=== PATIENT | female | born 1980 | race Caucasian/White ===

== ENCOUNTER → 2018-03-25 16:56 | Outpatient (CLI) | payer OTHER, SELFPAY ==
[2018-03-25 19:58] LABS: Free T4, Direct Thyroxine 0.99 ng/dL (0.78-2.19)
[2018-03-25 20:12] LABS: Thyroid Stimulating Hormone 1.98 uIU/mL (0.47-4.68)
== END ==
PROVIDERS: Visit Provider Obstetrics & Gynecology
DX: Z31.9 Encounter for procreative management, unspecified (principal)
CPT/HCPCS: 36415; 84439; 84443

== ENCOUNTER → 2018-07-03 16:47 | Outpatient (CLI) | payer OTHER, SELFPAY ==
[2018-07-03 19:31] LABS: HCG Quantitative /Beta subunit 84.64 mIU/mL
== END ==
PROVIDERS: PCP Internal Medicine; Visit Provider Obstetrics & Gynecology
DX: Z32.01 Encounter for pregnancy test, result positive (principal)
CPT/HCPCS: 36415; 84702

== ENCOUNTER → 2018-07-05 11:10 | Outpatient (CLI) | payer OTHER, SELFPAY ==
[2018-07-05 12:33] LABS: HCG Quantitative /Beta subunit 215.25 mIU/mL
== END ==
PROVIDERS: PCP Internal Medicine; Visit Provider Obstetrics & Gynecology
DX: O36.80X0 Pregnancy with inconclusive fetal viability, not applicable or unspecified (principal)
CPT/HCPCS: 36415; 84702

== ENCOUNTER → 2018-09-02 10:47 | Outpatient (CLI) | payer OTHER, SELFPAY ==
[2018-09-02 11:40] LABS: Add Manual Diff / Slide Review NO; Basophils Absolute Auto 0 /uL (0-100); Basophils Percent Auto 0.4 % (0-2); Eosinophils Absolute Auto 0 /uL (0-450); Eosinophils Percent Auto 0.1 % (2-4); Hematocrit 41.5 % (36-46); Hemoglobin 14.5 g/dL (12.0-16.0); Lymphocytes Absolute Auto 2100 /uL (1100-4500); Lymphocytes Percent Auto 26.4 % (25-40); Mean Corpuscular HGB Conc 34.9 % (30-36); Mean Corpuscular Volume 94.4 fL (80-100); Monocytes Absolute Auto 400 /uL (0-900); Monocytes Percent Auto 5.3 % (3-14); Neutrophils Absolute Auto 5400 /uL (1500-7000); Neutrophils Percent Auto 67.8 % (50-75); Platelet Count 190 X10^3/uL (150-400); Red Cell Distribution Width 12.4 % (11.6-14.8); White Blood Cell Count 7.9 X10^3/uL (4.5-11.0)
[2018-09-02 12:36] LABS: Appearance Urine UA CLEAR; Bilirubin Urine UA NEGATIVE (NEGATIVE); Color Urine UA YELLOW; Glucose Urine UA NEGATIVE (Negative); Ketones Urine UA NEGATIVE (NEGATIVE); Leukocyte Esterase Urine UA NEGATIVE (NEGATIVE); Nitrite Urine UA NEGATIVE (Negative); Occult Blood Urine UA NEGATIVE (Negative); Protein Urine UA NEGATIVE (Negative); Urobilinogen Urine UA 0.2 E.U./dL (0.2)
[2018-09-02 16:16] LABS: Hepatitis B Surface Antigen NEGATIVE s/c (NEGATIVE)
[2018-09-02 16:27] LABS: HIV 1 and 2 Antibody NEGATIVE (NEGATIVE); Hep C Virus Ab w/Reflex Quant NEGATIVE s/c (NEGATIVE)
[2018-09-04 21:01] LABS: RPR Screen Nonreactive (Nonreactive)
[2018-09-10 08:17] LABS: Informaseq SEE SEPARATE REPORTS
== END ==
PROVIDERS: PCP Internal Medicine; Visit Provider Obstetrics & Gynecology
DX: Z34.81 Encounter for supervision of other normal pregnancy, first trimester (principal); O09.529 Supervision of elderly multigravida, unspecified trimester; Z3A.12 12 weeks gestation of pregnancy
CPT/HCPCS: 36415; 80055; 81003; 81507; 86703; 86787; 86803; 86850; 86900; 86901; 87086

== ENCOUNTER → 2018-10-14 12:11 | Outpatient (CLI) | payer OTHER, SELFPAY | PROVIDERS: PCP Internal Medicine; Visit Provider Obstetrics & Gynecology | DX: Z34.82 Encounter for supervision of other normal pregnancy, second trimester (principal); Z3A.18 18 weeks gestation of pregnancy | CPT/HCPCS: 36415; 82105 ==

== ENCOUNTER → 2018-11-10 07:41 | Outpatient (CLI) | payer OTHER, SELFPAY ==
--- NOTE | 2018-11-10 07:42 | DI.US.S_ITS ---
PROCEDURE: US OB >= 14 WEEKS FETUS INDICATIONS: ANATOMY OUTSIDE/PRIOR DATING DATA: Last menstrual period (LMP): 06/05/18. LMP-based estimated date of delivery (SARAH): 03/12/19. First dating scan (date and location): 07/18/18. Estimated date of delivery (SARAH) from first dating scan: 03/12/19. TECHNIQUE: Real-time scanning was performed of the fetus, with image documentation and biometric measurements. Endovaginal scanning: No COMPARISON: [facility], , OB >= 14 WEEKS FETUS, 09/17/2018, 10:33. FINDINGS: General: A single living intrauterine gestation is present. Presentation: Breech to variable. Placenta: Placental position is posterior, without previa. Amniotic fluid index: 20.0 cm, normal range is 5-24 cm. heart rate: 147 beats per minute. Maternal cervical canal: 4.9 cm long. Normal lower limit is 2.5 cm. biometrics: Biparietal diameter: 22 weeks 1 day Head circumference: 23 weeks 2 days Abdominal circumference: 22 weeks 4 days Femur length: 23 weeks 6 days Estimated gestational age from initial scan: 22 weeks 4 days Composite gestational age from present scan: 23 weeks Estimated weight and percentile: 563 g; 70 percentile Measurement variability for biometric dating: +/- 7 days from 14 weeks to 15 weeks 6 days gestation, +/- 10 days from 16 weeks to 21 weeks 6 days gestation, +/- 2 weeks from 22 weeks to 27 weeks 6 days gestation, +/- 3 weeks for 28 weeks gestation or later. weight reference: 4500 g or EFW >90/95% is considered macrosomia or large for gestational age. EFW <10% is small for gestational age. EFW 5% or less is considered intra-uterine growth restriction. Anatomic survey: Neuro: Ventricles are non-dilated at less than 10 mm. Cisterna magna is normal at 3-11 mm. Cerebellum is normal in size and morphology. Nuchal skin fold: Normal at less than 6 mm between 14-21 weeks gestational age. Face: Nose and lips, facial profile are normal. Spine: No evidence for spina bifida. Heart: 4-chambered heart is present, with normal ventricular outflow tracts. Diaphragm: Diaphragm is intact. Stomach: Left-sided stomach is present. Kidneys: No hydronephrosis. Normal is less than 5 mm in 2nd trimester, less than 7 mm in 3rd trimester. Cord: 3-vessel cord has orthotopic insertion. Bladder: Normal in size. Extremities: All 4 extremities identified. IMPRESSION: 1. Single living IUP redemonstrated and interval growth of normal. 2. Normal anatomic survey. Dictated by: Christopher FISHER Interpreted: Geri Mims MD on 11/10/2018 at 9:39 Approved by: Geri Mims M.D. on 11/10/2018 at 14:46
== END ==
PROVIDERS: PCP Internal Medicine; Visit Provider Obstetrics & Gynecology
DX: Z34.82 Encounter for supervision of other normal pregnancy, second trimester (principal); Z3A.23 23 weeks gestation of pregnancy
CPT/HCPCS: 76811

== ENCOUNTER → 2018-12-01 09:40 | Outpatient (CLI) | payer OTHER, SELFPAY ==
[2018-12-01 11:59] LABS: GTT (PREG) 1 Hour PP 50gm Dose 160 mg/dL (76-139)
== END ==
PROVIDERS: Family Provider Internal Medicine; PCP Internal Medicine; Visit Provider Obstetrics & Gynecology
DX: Z34.82 Encounter for supervision of other normal pregnancy, second trimester (principal); Z3A.24 24 weeks gestation of pregnancy
CPT/HCPCS: 82950

== ENCOUNTER → 2018-12-04 07:12 | Outpatient (CLI) | payer OTHER, SELFPAY ==
[2018-12-04 08:37] LABS: Hematocrit 40.5 % (36-46); Hemoglobin 13.9 g/dL (12.0-16.0)
[2018-12-09 17:11] LABS: Parvovirus B19 Antibody 0.1
== END ==
PROVIDERS: PCP Internal Medicine; Visit Provider Obstetrics & Gynecology
DX: Z20.828 Contact with and (suspected) exposure to other viral communicable diseases (principal); Z34.92 Encounter for supervision of normal pregnancy, unspecified, second trimester; Z33.1 Pregnant state, incidental; Z3A.25 25 weeks gestation of pregnancy
CPT/HCPCS: 36415; 85014; 85018; 86747

== ENCOUNTER → 2018-12-08 07:51 | Outpatient (CLI) | payer OTHER, SELFPAY ==
[2018-12-08 10:29] LABS: Glucose Fasting Gestational 79 mg/dL (76-95)
[2018-12-08 11:07] LABS: Glucose 1 Hour Gest 173 mg/dL (76-180)
[2018-12-08 11:07] LABS: Glucose 2 Hour Gest 191 mg/dL (76-155)
[2018-12-08 11:08] LABS: Glucose Tol Interp,Gestational INTERPRETATION
[2018-12-08 13:47] LABS: Glucose 3 Hour Gest 90 mg/dL (76-140)
== END ==
PROVIDERS: PCP Internal Medicine; Visit Provider Obstetrics & Gynecology
DX: Z34.92 Encounter for supervision of normal pregnancy, unspecified, second trimester (principal); O99.810 Abnormal glucose complicating pregnancy; Z3A.24 24 weeks gestation of pregnancy
CPT/HCPCS: 36415; 82951; 82952

== ENCOUNTER → 2018-12-24 15:11 | Outpatient (CLI) | payer OTHER, SELFPAY ==
[2018-12-28 16:47] LABS: Parvovirus B19 Antibody 0.2
== END ==
PROVIDERS: PCP Internal Medicine; Visit Provider Obstetrics & Gynecology
DX: Z34.92 Encounter for supervision of normal pregnancy, unspecified, second trimester (principal); Z20.828 Contact with and (suspected) exposure to other viral communicable diseases
CPT/HCPCS: 36415; 86747

== ENCOUNTER 2019-01-17 09:45 | Outpatient (CLI) | payer OTHER, SELFPAY ==
--- NOTE | 2019-01-17 10:51 | DI.US.S_ITS ---
PROCEDURE: US OB BIOPHYSICAL PROFILE INDICATIONS: DECREASED MOVEMENT OUTSIDE/PRIOR DATING DATA: Last menstrual period (LMP): 06/05/18. LMP-based estimated date of delivery (SARAH): 03/12/19. First dating scan (date and location): 07/18/18. Estimated date of delivery (SARAH) from first dating scan: 03/12/19. TECHNIQUE: Real-time scanning was performed of the fetus for biophysical profile, with image documentation. COMPARISON: [facility], , US OB >= 14 WEEKS FETUS, 01/13/2019, 14:24. [facility], , US OB >= 14 WEEKS FETUS, 11/10/2018, 8:04. [facility], , US OB >= 14 WEEKS FETUS, 09/17/2018, 10:33. [facility], , US OB <= 14 WEEKS FETUS, 08/19/2018, 9:51. [facility], , US OB <= 14 WEEKS FETUS, 07/18/2018, 14:29. FINDINGS: General: A single live intrauterine gestation is present. Presentation: Vertex. Placenta: Placental position is left fundal, without previa. Amniotic fluid index: 14.9 cm, normal range is 5-24 cm. heart rate: 141 beats per minute. Maternal cervical canal: 4.5 cm long. Normal lower limit is 2.5 cm. Estimated gestational age from initial scan: 32 weeks 2 days. Biophysical profile: Tone: 2 points. Movement: 2 points. Respiration: 2 points. Largest pocket of fluid: 2 points. (Largest pocket 5.9 cm) IMPRESSION: Normal biophysical profile, 8/8 points. Dictated by: Cam Phillips M.D. on 01/17/2019 at 10:59 Approved by: Cam Phillips M.D. on 01/17/2019 at 11:01
--- NOTE | 2019-01-17 11:00 | P.TNLD_ITS ---
Visit Information Visit Information Date of evaluation: 01/17/19 Primary OB Provider: Verena Roa On-call OB Provider: Leana Ordaz Reason for Evaluation: Yes non-stress test non-stress test reason: decreased movement Comments/Additional reasons for admission: This patient is 38-year-old 0-1 at 32 and 2 presenting for decreased movement since last night. The patient reports that she noticed yesterday that she had decreased movement over the course of the day, drinks mg symptoms improved, but noticed it was decreased again this morning and presented for care. Patient denies contractions, vaginal bleeding, loss of fluid, or any other complaints obstetrical or otherwise. complicated by history of section, letrozole , elevated 1 hour GTT. Patient is for repeat section. Patient reports 2 other pregnancies were induced abortions. [facility] Medical History Actinic keratosis (Chronic ~2010) Asthma (Chronic) Chicken pox (Resolved) Foot pain (Chronic) Headache (Chronic) Human papilloma virus (Chronic ~2006) Hypertension (Chronic) Sleep apnea (Chronic ~07/2018) Snoring (Chronic) Vertigo (Chronic) Surgical History H/O section (Resolved ~09/28/14) Family History Father Hypertension Hyperlipidemia Grandfather Cancer Grandmother Heart disease Stroke Grandfather Heart disease Stroke Grandmother Cancer Social History Smoking Status: Never smoker Review of Systems Constitutional Constitutional: Reports system reviewed and no additional complaints, except as documented Cardiovascular Cardiovascular: Reports system reviewed; no additional complaints, except as documented Respiratory Respiratory: Reports system reviewed and no additional complaints, except as d ocumented Gastrointestinal Gastrointestinal: Reports system reviewed and no additional complaints, except as documented Genitourinary Genitourinary: Reports system reviewed and no additional complaints, except as documented Neurologic Neurologic: Reports system reviewed and no additional complaints, except as documented Exam Vital Signs (past 8 hours): 215/59 with appropriate cuff size. HR 80, T 36.3C GI Palpation: soft and No tender Evaluation Evaluation Baseline heart rate: 135 Variability: Average (6-10) monitor accelerations: Present monitor decelerations: Absent Category of Tracing: I Comments: BPP 10/10, with BEBETO normal per US tech. Patient feeling movement after ultrasound. Diagnosis, Plan/Disposition Plan/Disposition Plan: Patient reassured, discharged home with precautions. Discussed intermittent systolic BPs of 130s, patient asymptomatic, for follow up in clinic. OB Disposition: home
== END 2019-01-17 11:30 | disposition home or self-care (01) ==
LOC: LABOR 11:46 → OB 01-20 08:58
PROVIDERS: PCP Internal Medicine; Visit Provider Obstetrics & Gynecology
DX: O36.8130 Decreased fetal movements, third trimester, not applicable or unspecified (principal); O09.523 Supervision of elderly multigravida, third trimester; O26.23 Pregnancy care for patient with recurrent pregnancy loss, third trimester; Z3A.32 32 weeks gestation of pregnancy
CPT/HCPCS: 59025; 59050; 76819; G0378; G0379

== ENCOUNTER → 2019-02-09 16:21 | Outpatient (CLI) | payer OTHER, SELFPAY ==
[2019-02-10 12:23] LABS: Strep Grp B PCR NEG for Grp B Strep
== END ==
PROVIDERS: PCP Internal Medicine; Visit Provider Obstetrics & Gynecology
DX: Z34.83 Encounter for supervision of other normal pregnancy, third trimester (principal); Z3A.35 35 weeks gestation of pregnancy
CPT/HCPCS: 87653

== ENCOUNTER 2019-03-01 13:28 | Outpatient (CLI) | payer OTHER, SELFPAY ==
--- NOTE | 2019-03-01 14:03 | PM.OBTRLD ---
Visit Information Visit Information Date of evaluation: 03/01/19 Primary OB Provider: Leana Ordaz On-call OB Provider: Verena Roa Reason for Evaluation: Yes non-stress test and Yes rupture of membranes Comments/Additional reasons for admission: This patient is a 38yo @38+3 presenting for r/o ROM. She reports that at 7PM last night, she was standing up from urinating when she noticed ongoing leakage of fluid for several seconds, dampening her clothing. She reports that she has had no further leakage, that the fluid had no odor, and that she was unable to assess the color as it soaked into jeans. She denies vaginal bleeding, reports normal movement, has had no symptomatic contractions, and denies any other complaints including no SCALES, visual changes, fevers, chills, dysuria, or other symptoms. She has a history for chronic hypertension for years well controlled on metoprolol. She has a history of a prior term CS for failure to progress in the setting of possible distress and endometritis, and denies any complications or other contributory history. Vital Signs Vital Signs: 132/78, HR 80, afebrile [facility] Medical History (Updated 02/28/19 @ 13:37 by MIKEY Loera) Actinic keratosis (Chronic ~2010) Asthma (Chronic) Chicken pox (Resolved) Excessive daytime sleepiness (Chronic) Foot pain (Chronic) Headache (Chronic) Human papilloma virus (Chronic ~2006) Hypertension (Chronic) Obesity (BMI 30-39.9) (Chronic) Obstructive sleep apnea (Chronic ~07/2018) Snoring (Inactive) Vertigo (Chronic) Surgical History H/O section (Resolved ~09/28/14) Social History Smoking Status: Never smoker Exam GI Palpation: soft and No tender Evaluation Evaluation Baseline heart rate: 130 Variability: Average (6-10) monitor accelerations: Present monitor decelerations: Absent Contraction Frequency (minutes): 2 Category of Tracing: I Non-invasive Membranes Rupture Test: negative Comments: Contractions entirely asymptomatic Diagnosis, Plan/Disposition Plan/Disposition Plan: Patient scheduled for repeat CS this week, antepartum precautions reviewed and patient to return with any change in maternal or status. OB Disposition: home
== END 2019-03-01 14:45 | disposition home or self-care (01) ==
LOC: LABOR 14:43 → OB 03-02 15:48
PROVIDERS: PCP Internal Medicine; Visit Provider Obstetrics & Gynecology
DX: O09.523 Supervision of elderly multigravida, third trimester (principal); O26.23 Pregnancy care for patient with recurrent pregnancy loss, third trimester; O10.913 Unspecified pre-existing hypertension complicating pregnancy, third trimester; N89.8 Other specified noninflammatory disorders of vagina; Z3A.38 38 weeks gestation of pregnancy
CPT/HCPCS: 59025; 84112; G0378; G0379

== ENCOUNTER 2019-03-05 05:36 | Inpatient (IN) | payer OTHER, SELFPAY ==
--- NOTE | 2019-03-05 | PATH_ITS ---
[facility] Accession Number: [id number] . 01 Material submitted: . fallopian tube - SEGMENT BILATERAL FALLOPIAN TUBES . 01 Clinical history: . REPEAT W/TUBAL . 02 Diagnosis: Segment Bilateral Fallopian Tubes, Bilateral Tubal Ligation: Complete cross-sections of segments of fallopian tube X 2. Negative for atypia or malignancy. [facility] 03/06/2019 0948 Local . 02 Electronically signed: . Muriel Quezada MD, Pathologist NPI- [id number] . 01 Gross description: . Received one formalin-filled container labeled with the patient's name and labeled segment bilateral fallopian tubes. The specimen consists of two non-fimbriated, cylindrical-shaped portions of tissue. The first measures 1.2 x 0.8 x 0.5 cm. Inked blue, sectioned into three pieces, and entirely submitted in cassette A1. The second piece measures 0.9 x 0.7 x 0.5 cm. Inked blue, sectioned into three pieces, and entirely submitted in cassette A2. (DC:[id number]) /Desean 03/06/2019 0220 Local . 02 Pathologist provided ICD-10: Z30.2, Z98.891 . 02 CPT . 813700 Performed at: 01 [facility] [address], [place], [place] [id number] MD Jermaine Smith MD Phone: [phone] Performed at: 02 [facility] [address] [place], [place] [id number] MD Albania Quintanilla MD Phone: [phone]
[2019-03-05] MEDS: LACTATED RINGERS 1,000 ML 100 ML IV ×3 (06:17→09:24)
[2019-03-05 06:29] LABS: Add Manual Diff / Slide Review NO; Basophils Absolute Auto 100 /uL (0-100); Basophils Percent Auto 0.6 % (0-2); Eosinophils Absolute Auto 0 /uL (0-450); Eosinophils Percent Auto 0.4 % (2-4); Hemoglobin 13.9 g/dL (12.0-16.0); Lymphocytes Absolute Auto 2500 /uL (1100-4500); Lymphocytes Percent Auto 23.7 % (25-40); Mean Corpuscular HGB Conc 34.7 % (30-36); Mean Corpuscular Hemoglobin 33.5 PG (26-34); Mean Corpuscular Volume 96.4 fL (80-100); Monocytes Absolute Auto 600 /uL (0-900); Monocytes Percent Auto 5.5 % (3-14); Neutrophils Absolute Auto 7200 /uL (1500-7000); Neutrophils Percent Auto 69.8 % (50-75); Platelet Count 235 X10^3/uL (150-400); Red Blood Cell Count 4.15 X10^6/uL (4.0-5.2); Red Cell Distribution Width 12.6 % (11.6-14.8); White Blood Cell Count 10.4 X10^3/uL (4.5-11.0)
--- NOTE | 2019-03-05 07:24 | SUR.OPER ---
Supine on Padded OR bed, head on pillow, safety belt at thigh, arms secured on padded arm boards at <90 degrees abduction. Bump under right buttock. Legs uncrossed with pillow under knees, gel pad to heels, tape over blanket to lower legs.
--- NOTE | 2019-03-05 07:29 | P.HPOB_ITS ---
OB HPI Date/Time Date of admission: 03/05/19 Date Patient Seen: 03/05/19 Time Patient Seen: 07:31 History of Present Condition Chief complaint: [id number] REPEAT W/TUBAL : 4 Para: 1 Estimated Date of Delivery: 03/12/19 Estimated Gestational Age (weeks): 39 Narrative: Fransico Napier is a 38 year old female admitted for repeat section and bilateral tubal ligation Indications Operative indications ( section): previous uterine surgery History of Present care: good care, initiated at week # (10), number of visits (9) and pounds weight gain (12) Dating criteria: LMP confirmed by 1st trimester US Ultrasounds: normal mid trimester US Obstetrical complications: none Medical complications: none Preadmission Labs Blood type: A (+) positive -: Antibody screen: negative, GBS status: negative, HBsAG: negative, HIV: negative and RPR/VDLR: negative -: Chlamydia screen: not detected and Gonorrhea screen: not detected -: Rubella: immune and Varicella: immune HCAB: negative PAP: Normal Sequential screen: Normal 1 hr GTT: 160 3 hr GTT: 1 hr (173), 2 hr (191) and 3 hr (90) Fasting blood glucose: 79 Prior (ies) History: [id number] week gestation female by section 8 lb 5 oz Evaluation Evaluation Baseline heart rate: 140 Variability: Moderate (11-25) monitor accelerations: Present monitor decelerations: Absent Contraction Frequency (minutes): 0 Laboratory results: Laboratory Tests 03/05/19 03/05/19 06:00 06:00 WBC 10.4 RBC 4.15 Hgb 13.9 Hct 40.0 MCV 96.4 MCH 33.5 MCHC 34.7 RDW 12.6 Plt Count 235 Neut % (Auto) 69.8 Lymph % (Auto) 23.7 L Wol[place] % (Auto) 5.5 Eos % (Auto) 0.4 L Baso % (Auto) 0.6 Neut # (Auto) 7200 H Lymph # (Auto) 2500 [place]fe # (Auto) 600 Eos # (Auto) 0 Baso # (Auto) 100 Blood Type A Positive Antibody Screen Negative [facility] Medical History (Updated 02/28/19 @ 13:37 by MIKEY Loera) Actinic keratosis (Chronic ~2010) Asthma (Chronic) Chicken pox (Resolved) Excessive daytime sleepiness (Chronic) Foot pain (Chronic) Headache (Chronic) Human papilloma virus (Chronic ~2006) Hypertension (Chronic) Obesity (BMI 30-39.9) (Chronic) Obstructive sleep apnea (Chronic ~07/2018) Snoring (Inactive) Vertigo (Chronic) Surgical History H/O section (Resolved ~09/28/14) Social History Smoking Status: Never smoker Meds Home Medications and Allergies Home Medications Medication Instructions Recorded Confirmed Type prenat.vits,dolly,ezn-joui-kxtdi 1 tab PO DAILY #90 tab 07/18/18 03/05/19 Rx cetirizine 10 mg tablet 10 mg PO DAILY 08/14/18 03/05/19 History Double Electric breast Pump and #1 each 02/19/19 Rx Supplies metoprolol succinate 50 mg 50 mg PO DAILY #90 tab 02/27/19 03/05/19 Rx tablet,extended release 24 hr Allergies Allergy/AdvReac Type Severity Reaction Status Date / Time nifedipine [NIFEDIPINE] Allergy Unknown rash Verified 03/05/19 05:48 Review of Systems Review of Systems Narrative: No headaches, scotomata, epigastric pain. Good movement. No leakage of fluid. No contractions. ROS Unobtainable: All systems reviewed & are unremarkable except as noted in HPI and below Exam Vital Signs (past 8 hours): Blood pressure 135/79, pulse of 84, temperature 95.9? Narrative Exam Narrative: HEENT exam within normal limits. Lungs are clear to auscultation percussion. Heart is regular rate and rhythm no S3-S4 or murmurs. Abdomen is soft, nontender. Infant is vertex. Extremities with trace edema and nontender. Objective Labs Result Diagrams: 03/05/19 06:00 Labs: Laboratory Results - last 24 hr 03/05/19 03/05/19 06:00 06:00 WBC 10.4 RBC 4.15 Hgb 13.9 Hct 40.0 MCV 96.4 MCH 33.5 MCHC 34.7 RDW 12.6 Plt Count 235 Neut % (Auto) 69.8 Lymph % (Auto) 23.7 L Wolfe % (Auto) 5.5 Eos % (Auto) 0.4 L Baso % (Auto) 0.6 Neut # (Auto) 7200 H Lymph # (Auto) 2500 Wolfe # (Auto) 600 Eos # (Auto) 0 Baso # (Auto) 100 Blood Type A Positive Antibody Screen Negative Assessment and Plan Assessment and Plan Assessment and Plan narrative: 39 week gestation with prior section and undesired fertility who is going to proceed with a repeat section and bilateral tubal ligation Time Spent with Patient Total time spent with greater than 50% in coordination of care (as documented) a t patient's floor/unit and/or counseling patient:: less than 15 minutes
[2019-03-05] MEDS: CEFAZOLIN 2 GM/100 ML FROZ.PIGGY IV (07:41)
[2019-03-05] MEDS: ACETAMINOPHEN IV 1,000 MG/100 ML VIAL 400 MG IV (08:17)
--- NOTE | 2019-03-05 08:27 | SUR.OPER ---
VIABLE FEMALE INFANT DELIVERED AT 0817. CORD BLOOD AND PLACENTA TO OB WITH RN.
[2019-03-05 09:00] VITALS: BP 106/50; PULSE 87; RESP 18; TEMP 36.4; O2SAT 97
[2019-03-05 09:05] VITALS: BP 110/58; PULSE 81; RESP 18; TEMP 36.3; O2SAT 98
[2019-03-05 09:10] VITALS: BP 104/57; PULSE 86; RESP 18; O2SAT 98
[2019-03-05 09:20] VITALS: BP 115/65; PULSE 75; RESP 16; O2SAT 97
--- NOTE | 2019-03-05 09:24 | P.OP_ITS ---
Operative Date/Time/Diagnoses Date of procedure: 03/05/19 Time of procedure: 09:24 Pre-op diagnosis: Prior section with undesired fertility for repeat section tubal ligation Post-op diagnosis: same Procedure & Clinicians Procedure: Repeat low-transverse section with bilateral tubal ligation Same procedure as scheduled: Yes Indications: Repeat low-transverse section with bilateral tubal ligation Surgeon: Silvana Stubbs Seo Assistant: Maria Elena Herzog Click Yes if Unassisted: No Anesthesia Type: Spinal Operative Notes Findings: Normal tubes, ovaries, and uterus. Viable female infant weighing 8 lb 1 oz Closure Type: primary Specimen(s): other (Bilateral segments of fallopian tube) Applied: catheter (Brice) Estimated Blood Loss (mL): 300 Blood products transfused: none Procedure in detail: The patient was brought to the operating room where she underwent a spinal for anesthesia. She was placed in a supine position with a left lateral tilt. A Brice catheter was placed. Pulsatile stockings were placed and functional throughout the case. 2 g of Ancef were given IV prior to the incision. Warming was in place. The patient was prepped and draped in usual sterile fashion. A low transverse incision was made with a scalpel and the incision was carried down to the fascial layer which was incised transversely with scissors. The midline attachments are superiorly and inferiorly. Some bleeding was controlled Bovie. The rectus muscles were in the midline and the peritoneal incision was made with no damage to internal structures. The peritoneum was incised and superiorly and inferiorly. Bladder blade was placed and a bladder flap was developed and the bladder held away from the lower uterine segment. An incision was made in the uterus with the scalpel and the incision was extended with stretching. The head was elevated out of the abdomen and with fundal pressure the baby was delivered. The was bulb suctioned for clear fluid and handed off to the warmer. Cord blood was collected. The placenta delivered spontaneously with traction. The uterus was cleaned with clean laps. The uterine incision was closed in 2 layers of 0 chromic suture the first a running locking layer the second an imbricating layer. The bladder peritoneum was repaired with 2-0 Polysorb suture. The gutters were cleaned of any remaining fluids and ovaries and tubes were observed to be normal. The right fallopian tube was grasped with the Philip and segment of tube was tied off x2 with 0 plain suture. The intervening section was removed. Adequate hemostasis noted. The same procedure was performed on the opposite side. Adequate hemostasis was noted. The perineum was closed with 2-0 Polysorb suture. The fascia layer was closed with 0 Polysorb suture with 2 stitches. The incision was irrigated and adequate hemostasis noted. The incision was closed with interrupted 3-0 Polysorb sutures and then a subcuticular stitch of 4-0 Polysorb suture. Steri-Strips were placed. The uterus was massaged to remove any clots. The patient went to recovery room in good condition. Counts of instruments and sponges were correct. Complications: none Post-operative Condition: stable Disposition: other ( Center) Plan for aftercare: Routine post section care
[2019-03-05 09:25] VITALS: BP 108/82; PULSE 85; RESP 16; O2SAT 98
[2019-03-05] MEDS: NALBUPHINE 20 MG/ML AMPUL 5 MG IV ×2 (10:26→16:49)
[2019-03-05 11:42] VITALS: BP 123/65
[2019-03-05] MEDS: KETOROLAC 30 MG/ML VIAL IV ×2 (15:45→22:13)
[2019-03-05] MEDS: LANOLIN OINT 7 GM 1 APPLIC TOP (17:28)
[2019-03-05] MEDS: ACETAMINOPHEN 325 MG TABLET 650 MG PO (23:19)
[2019-03-06 00:16] VITALS: BP 139/83; PULSE 84; RESP 16; TEMP 36.8
[2019-03-06 03:16] VITALS: BP 139/83; PULSE 84; RESP 16; TEMP 36.8
[2019-03-06] MEDS: ACETAMINOPHEN 325 MG TABLET 650 MG PO (04:30)
[2019-03-06] MEDS: KETOROLAC 30 MG/ML VIAL IV (04:30)
[2019-03-06 07:22] LABS: Add Manual Diff / Slide Review NO; Basophils Absolute Auto 0 /uL (0-100); Basophils Percent Auto 0.2 % (0-2); Eosinophils Absolute Auto 100 /uL (0-450); Eosinophils Percent Auto 0.6 % (2-4); Hemoglobin 12.7 g/dL (12.0-16.0); Lymphocytes Absolute Auto 1600 /uL (1100-4500); Mean Corpuscular HGB Conc 34.3 % (30-36); Mean Corpuscular Hemoglobin 33.2 PG (26-34); Mean Corpuscular Volume 96.6 fL (80-100); Monocytes Absolute Auto 600 /uL (0-900); Monocytes Percent Auto 6.4 % (3-14); Neutrophils Absolute Auto 7300 /uL (1500-7000); Neutrophils Percent Auto 75.8 % (50-75); Platelet Count 181 X10^3/uL (150-400); Red Blood Cell Count 3.82 X10^6/uL (4.0-5.2); White Blood Cell Count 9.7 X10^3/uL (4.5-11.0)
[2019-03-06] MEDS: METOPROLOL ER 50 MG TABLET PO (09:45)
[2019-03-06] MEDS: DOCUSATE 250 MG CAPSULE PO (09:46)
[2019-03-06] MEDS: FERROUS GLUCONATE 324 MG TABLET PO (09:46)
[2019-03-06] MEDS: OXYCODONE/ACETAMINOPHEN 5/325 TABLET 1 TAB PO (10:20)
[2019-03-06] MEDS: IBUPROFEN 600 MG TABLET PO ×3 (10:21→23:37)
[2019-03-06] MEDS: SIMETHICONE 80 MG TABLET PO ×2 (13:09→18:47)
--- NOTE | 2019-03-06 13:31 | PM.OBPN.1 ---
Subjective - OB Subjective Patient comments: incisional pain baby status: doing well feeding status: exclusively breast feeding Date Patient Seen: 03/06/19 Time Patient Seen: 13:31 Interval history: Patient is doing well. She is ambulatory. She is urinating post Brice catheter removal. She is passing gas. She does complain of right-sided incisional pain but no other complaints. Exam Vital Signs (past 8 hours): Blood pressure 128/71, pulse 79, temperature 98.1? Oxygen Delivery Method Room Air Narrative Exam Narrative: Abdomen is mildly distended but nontender. Uterus is firm, at U, minimally tender. Dressing is clean, dry, intact. Mild lochia. Extremities with trace edema and nontender. Objective Labs Result Diagrams: 03/06/19 06:43 Labs: Laboratory Results - last 24 hr 03/06/19 06:43 WBC 9.7 RBC 3.82 L Hgb 12.7 Hct 37.0 MCV 96.6 MCH 33.2 MCHC 34.3 RDW 13.0 Plt Count 181 Neut % (Auto) 75.8 H Lymph % (Auto) 17.0 L [place] % (Auto) 6.4 Eos % (Auto) 0.6 L Baso % (Auto) 0.2 Neut # (Auto) 7300 H Lymph # (Auto) 1600 [place] # (Auto) 600 Eos # (Auto) 100 Baso # (Auto) 0 Assessment & Plan Assessment and Plan (1) Delivery by section: Status: Acute Assessment and plan: Normal 1st day post repeat section exam. Patient doing well. Current Visit: Yes Plan day: 1 plan OB: routine postop care Time Spent With Patient Time: Total time spent is greater than 50% in coordination of care (as documented) at patient's floor/unit and/or counseling patient: Time with patient: less than 15 minutes
[2019-03-06] MEDS: OXYCODONE/ACETAMINOPHEN 5/325 TABLET 2 TAB PO ×3 (14:29→23:37)
[2019-03-06] MEDS: OXYCODONE IR 5 MG TABLET PO (21:12)
[2019-03-07] MEDS: OXYCODONE IR 5 MG TABLET PO (04:08)
[2019-03-07] MEDS: ONDANSETRON 4 MG ODT PO (07:36)
[2019-03-07] MEDS: OXYCODONE/ACETAMINOPHEN 5/325 TABLET 2 TAB PO (09:09)
[2019-03-07] MEDS: IBUPROFEN 600 MG TABLET PO (09:09)
[2019-03-07] MEDS: FERROUS GLUCONATE 324 MG TABLET PO (09:09)
[2019-03-07] MEDS: DOCUSATE 250 MG CAPSULE PO (09:09)
--- NOTE | 2019-03-07 11:38 | P.DS_ITS ---
Discharge Providers Provider Date of admission: 03/05/19 05:36 Discharge Date: 03/07/19 Primary care physician: Maude Munguia MD Consults: 03/05/19 15:26 Consult to Strategic Account Executive Routine Comment: Discharge provider: Silvana Stubbs MD Summary Hospital Course Date Patient Seen: 03/07/19 Time Patient Seen: 11:38 Procedures: Repeat low transverse section with bilateral tubal ligation Hospital Course: Patient underwent a repeat low-transverse section with bilateral tubal ligation on 03/05/2019. Other than right lower quadrant pain she did well . She is urinating and ambulatory. She has not passed gas but is wi shing to go home to take MiraLax. She denies headaches, scotomata, epigastric pain. Peripartum Data Delivery Method: Section (Repeat) Procedures: Repeat low-transverse section bilateral tubal ligation complications: none Discharge Diagnosis (1) Delivery by section: Status: Acute (2) Sterilization: Status: Acute (3) Obesity (BMI 30-39.9): Status: Chronic Status at Discharge Cognitive/behavioral status at discharge: oriented Functional status at discharge: independent ambulation Overall status at discharge: patient is progressing back to baseline Time Spent with Patient Time attestation: Total time spent providing and/or coordinating discharge services: Time spent: Less than 30 minutes Objective Labs Result Diagrams: 03/06/19 06:43 Exam Vital Signs (past 8 hours): Blood pressure 139/83, pulse of 84, temperature 98.3? Oxygen Delivery Method Room Air Narrative Exam Narrative: Abdomen is distended but nontender. Uterus is firm, at U, appropriately tender. Dressing is clean, dry, intact. Mild lochia. Extremities without edema and nontender. Patient's blood type is A-positive she is rubella immune and received the Tdap in the 3rd trimester. Discharge Plan Discharge Plan Patient Disposition: Home Discharge orders & Medications Prescriptions: New docusate sodium 250 mg Capsule 250 mg PO DAILY Qty: 20 RF: 0 ibuprofen 600 mg Tablet 600 mg PO Q6HR PRN (Reason: Fever/Mild Pain (1-3)) Qty: 30 RF: 0 oxycodone 5 mg Tablet 10 mg PO Q4HR PRN (Reason: Pain, Moderate (4-6)) Qty: 40 RF: 0 Continued prenat.vits,dolly,zll-ntnf-sgihn tablet 1 tab PO DAILY Qty: 90 RF: 3 (DME) Double Electric breast Pump and Supplies See Rx Instructions .ROUTE .MEDSUPPLY Qty: 1 RF: 0 metoprolol succinate 50 mg tablet extended release 24 hr 50 mg PO DAILY Qty: 90 RF: 3 cetirizine [Zyrtec] 10 mg tablet 10 mg PO DAILY RF: 0 Follow up/Referrals: Maude Munguia MD [Primary Care Provider] - (Please make an appointment to see in 1 week for aquacell removal. Follow up appointment with clinic on Thr at 11:00 AM ) Diet/Activity/Treatments Diet: Regular Activity: Nothing in vagina for 4 weeks. Do not lift over 20 lb for 6 weeks Skin/Wound/Dressing Care Report to your healthcare provider any signs of infection, such as:: chills, fever, increased pain and unusual redness Dressing: Leave dressing in place may get wet Visit Report/Discharge Packet Instructions: DI for Discharge Data Primary Care Provider: Maude Munguia
== END 2019-03-07 13:30 | disposition home or self-care (01) | DRG 785 ==
PROVIDERS: Admitting Provider Specialist; PCP Internal Medicine; Visit Provider Specialist
PROC: 10D00Z1 Extraction of Products of Conception, Low, Open Approach (ICD-10-PCS; CPT 59514; principal; 2019-03-05 07:45)
DX: O34.219 Maternal care for unspecified type scar from previous cesarean delivery (principal); Z30.2 Encounter for sterilization; Z3A.39 39 weeks gestation of pregnancy; Z37.0 Single live birth; G47.33 Obstructive sleep apnea (adult) (pediatric); I10 Essential (primary) hypertension; J45.909 Unspecified asthma, uncomplicated; E66.9 Obesity, unspecified
CPT/HCPCS: 36415; 58611; 59050; 59510; 59514; 85025; 86850; 86900; 86901; J0131; J0690; J1885; J2274; J2300; J2590

== ENCOUNTER → 2021-02-02 11:39 | Outpatient (CLI) | payer OTHER, SELFPAY ==
[2021-02-02 12:11] LABS: Hemoglobin A1C% w Est Avg Glu 5.4 % (4.0-6.0)
[2021-02-02 12:19] LABS: Add Manual Diff / Slide Review NO; Basophils Absolute Auto 0 /uL (0-100); Basophils Percent Auto 0.5 % (0-2); Eosinophils Absolute Auto 0 /uL (0-450); Eosinophils Percent Auto 0.2 % (2-4); Hematocrit 43.9 % (36-46); Hemoglobin 15.2 g/dL (12.0-16.0); Lymphocytes Absolute Auto 2500 /uL (1100-4500); Lymphocytes Percent Auto 37.4 % (25-40); Mean Corpuscular HGB Conc 34.6 % (30-36); Mean Corpuscular Hemoglobin 32.4 PG (26-34); Mean Corpuscular Volume 93.6 fL (80-100); Monocytes Absolute Auto 500 /uL (0-900); Monocytes Percent Auto 7.5 % (3-14); Neutrophils Absolute Auto 3600 /uL (1500-7000); Neutrophils Percent Auto 54.4 % (50-75); Platelet Count 275 X10^3/uL (150-400); Red Blood Cell Count 4.69 X10^6/uL (4.0-5.2); Red Cell Distribution Width 12.5 % (11.6-14.8); White Blood Cell Count 6.6 X10^3/uL (4.5-11.0)
[2021-02-02 12:21] LABS: Alanine Aminotransferase 22 IU/L (<35); Albumin 4.4 g/dL (3.5-5.0); Albumin Globulin Ratio 1.4 (1.0-2.8); Alkaline Phosphatase 65 U/L (38-126); Aspartate Aminotransferase 22 IU/L (14-36); BUN Creatinine Ratio 15.6 (6-22); Bilirubin Total 0.6 mg/dL (0.2-1.3); Blood Urea Nitrogen 15 mg/dL (7-17); Calcium 9.5 mg/dL (8.4-10.2); Carbon Dioxide 27 mmol/L (22-32); Chloride 105 mmol/L (98-107); Estimated Glomerular Filt Rate > 60.0 mL/min (>60); Globulin 3.2 g/dL (1.7-4.1); Glucose 92 mg/dL (70-100); HEMOLYSIS < 15 (0-50); Potassium 4.1 mmol/L (3.4-5.1); Sodium 139 mmol/L (137-145); Total Protein 7.6 g/dL (6.3-8.2)
[2021-02-02 12:44] LABS: Follicle Stimulating Hormone 7.53 mIU/mL; Luteinizing Hormone 3.81 mIU/mL
[2021-02-02 13:17] LABS: Thyroid Stimulating Hormone 1.75 uIU/mL (0.47-4.68)
== END ==
PROVIDERS: PCP Family Medicine; Referring Provider Family Medicine; Visit Provider Family Medicine
DX: N92.0 Excessive and frequent menstruation with regular cycle (principal); F41.9 Anxiety disorder, unspecified; N95.1 Menopausal and female climacteric states; E78.5 Hyperlipidemia, unspecified; F32.0 Major depressive disorder, single episode, mild; R42 Dizziness and giddiness
CPT/HCPCS: 36415; 80053; 83001; 83002; 83036; 84443; 85025

== ENCOUNTER → 2022-01-21 13:56 | Outpatient (CLI) | payer OTHER, SELFPAY ==
[2022-01-21 15:28] LABS: Influenza A - CEPHEID Flu A NEGATIVE (NEGATIVE); Influenza B - CEPHEID Flu B NEGATIVE (NEGATIVE); Respiratory Syncytial Virus Negative (Negative)
[2022-01-21 15:31] LABS: COVID-19 CEPHEID 4-PLEX PCR Negative (Negative)
== END ==
PROVIDERS: PCP Family Medicine; Visit Provider Physician Assistant
DX: R05.9 Cough, unspecified (principal); J02.9 Acute pharyngitis, unspecified
CPT/HCPCS: 0241U; 87070

== ENCOUNTER → 2022-01-28 14:14 | Outpatient (CLI) | payer OTHER, SELFPAY | PROVIDERS: PCP Family Medicine; Visit Provider Physician Assistant | DX: J02.9 Acute pharyngitis, unspecified (principal) | CPT/HCPCS: 87070 ==

== ENCOUNTER → 2022-01-28 14:22 | Outpatient (CLI) | payer OTHER, SELFPAY ==
--- NOTE | 2022-01-28 14:24 | DI.RAD.S_ITS ---
PROCEDURE: XR CHEST 2V INDICATIONS: Chest discomfort TECHNIQUE: 2 views of the chest were acquired. COMPARISON: None. FINDINGS: Surgical changes and devices: None. Lungs and pleura: An incomplete inspiratory result is noted, causing a crowded appearance to the lung markings. No focal infiltrates are seen. No pneumothorax or significant pleural effusions are seen. Mediastinum: Mediastinal contours are normal. Heart size is normal. Bones and chest wall: No suspicious bony abnormalities. Soft tissues appear unremarkable. IMPRESSION: Lung volumes, without an acute abnormality seen. Dictated by: Cam Phillips M.D. on 01/28/2022 at 16:40 Approved by: Cam Phillips M.D. on 01/28/2022 at 16:40
== END ==
PROVIDERS: PCP Family Medicine; Referring Provider Physician Assistant; Visit Provider Physician Assistant
DX: J06.9 Acute upper respiratory infection, unspecified (principal); J02.9 Acute pharyngitis, unspecified
CPT/HCPCS: 71046; 87070

== ENCOUNTER 2023-01-27 11:34 | Emergency (ER) | payer OTHER, SELFPAY ==
[2023-01-27] VITALS (7 sets, daily range): BP systolic 130–144; BP diastolic 63–81; PULSE 72–88; RESP 19–30; TEMP 36.2; O2SAT 93–97; BMI 39.5
--- NOTE | 2023-01-27 11:56 | DI.RAD.S_ITS ---
PROCEDURE: XR CHEST 1V INDICATIONS: Eval for pneumonia TECHNIQUE: One view of the chest was acquired. COMPARISON: [facility], CR, XR CHEST 2V, 01/28/2022, 14:24. FINDINGS: Surgical changes and devices: None. Lungs and pleura: Lungs are clear. No pleural effusions or pneumothorax. Mediastinum: Mediastinal contours appear normal. Heart size is normal. Bones and chest wall: No suspicious bony lesions. Overlying soft tissues appear unremarkable. IMPRESSION: No acute cardiopulmonary abnormality is seen. Dictated by: Marques Venegas M.D. on 01/27/2023 at 11:12 Approved by: Marques Venegas M.D. on 01/27/2023 at 11:13
--- NOTE | 2023-01-27 12:06 | ED.GENADULT ---
HPI - General Adult General Chief complaint: Shortness of Breath/Dyspnea Stated complaint: SOB Time Seen by Provider: 01/27/23 11:56 Source: patient Mode of arrival: Ambulatory Limitations: no limitations History of Present Illness HPI narrative: Patient is a 42-year-old female. Distant history of asthma. Does use a CPAP at night. Is here for evaluation of shortness of breath. No chest pain but is having some pressure. No cough. No fevers. No sore throat. She did try some albuterol at home without any improvement of symptoms. No skin rashes. No abdominal pain. He is not on control. Had travel greater than 60 days ago. No history of blood clots. No lower extremity swelling. Related Data Home Medications Medication Instructions Recorded Confirmed cetirizine 10 mg tablet (Zyrtec) 10 mg PO DAILY 08/14/18 01/28/22 B complex PO 07/27/21 01/28/22 Vitamin D PO 07/27/21 01/28/22 citalopram 40 mg tablet 40 mg PO DAILY 07/27/21 01/28/22 metoprolol succinate 50 mg 25 mg PO DAILY 07/27/21 01/28/22 tablet,extended release 24 hr wellbutrin PO 07/27/21 01/28/22 Previous Rx's Medication Instructions Recorded prenat.vits,dolly,tpi-jfhw-zlkfm 1 tab PO DAILY #90 tabs 07/18/18 ibuprofen 600 mg tablet 600 mg PO Q6HR PRN Fever/Mild Pain 03/16/19 (1-3) #30 tabs amoxicillin 875 mg tablet 875 mg PO BID #14 tabs 01/28/22 prednisone 20 mg tablet 20 mg PO DAILY #7 tabs 01/27/23 Allergies Allergy/AdvReac Type Severity Reaction Status Date / Time nifedipine [NIFEDIPINE] Allergy Unknown rash Verified 01/28/22 13:33 Review of Systems Constitutional Constitutional: Reports system reviewed and no additional complaints, except as documented Cardiovascular Cardiovascular: Reports system reviewed and no additional complaints, except as documented Respiratory Respiratory: Reports system reviewed and no additional complaints, except as documented Gastrointestinal Gastrointestinal: Reports system reviewed and no additional complaints, except as documented Integumentary/Breasts Skin/Breast: Reports system reviewed and no additional complaints, except as documented Hematologic/Lymphatic On Anticoagulants: No Allergic/Immunologic Allergic/Immunologic: Reports system reviewed and no additional complaints, except as documented Patient History Medical History Otitis media Viral URI Sterilization (~02/2019) Obesity (BMI 30-39.9) Excessive daytime sleepiness Obstructive sleep apnea (~07/2018) Snoring Actinic keratosis (~2010) Asthma Headache Foot pain Chicken pox Vertigo Human papilloma virus (~2006) Hypertension Surgical History Delivery by section Previous section H/O section (~09/28/14) Family History Father Hypertension Hyperlipidemia Grandfather Cancer Grandmother Heart disease Stroke Grandfather Heart disease Stroke Grandmother Cancer Social History Smoking Status: Never smoker Smoking Status: Never smoker Exam Initial Vital Signs Initial Vital Signs: Vital Signs Temperature 97.1 F L 01/27/23 11:45 Pulse Rate 88 01/27/23 11:45 Respiratory Rate 24 01/27/23 11:45 Blood Pressure 132/75 01/27/23 11:45 Pulse Oximetry 97 01/27/23 11:45 Oxygen Delivery Method Room Air 01/27/23 11:45 HENMT Head: normal to inspection and normocephalic Resp Effort & Inspection: normal respiratory effort, no cough, not labored, no respiratory distress and tachypneic Auscultation: clear to auscultation bilaterally Cardio Rate: regular rate Rhythm: regular rhythm GI Inspection: normal to inspection Skin General: no rashes or lesions noted Neuro General: patient alert and patient awake Extrem General: capillary refill normal Course Orders Ordered: ED Orders 01/27/23 11:56 XR chest 1V Stat 01/27/23 11:57 Respiratory Panel (Film Array) Stat RT Consult Eval and Treat Now 01/27/23 12:48 EKG-12 Lead Stat 01/27/23 13:10 Complete Blood Count AUTO DIFF Stat Comprehensive Metabolic Panel Stat D Dimer Stat Lipase Stat NT-proBNP (BNP-Adult 18+) Stat Troponin & CK Cardiac Panel Stat Vital Signs Vital signs: Vital Signs - 8 hr 01/27/23 11:45 01/27/23 11:56 01/27/23 12:00 Temperature 97.1 F L Pulse Rate 88 79 84 Respiratory Rate 24 19 22 Blood Pressure 132/75 Pulse Oximetry 97 95 96 Oxygen Delivery Method Room Air 01/27/23 12:00 Temperature Pulse Rate Respiratory Rate Blood Pressure 144/81 H Pulse Oximetry Oxygen Delivery Method Medical Decision Making Lab Data Lab results reviewed: Yes I reviewed the patient's lab results. 01/27/23 13:10 01/27/23 13:10 Labs: Lab Results 01/27/23 01/27/23 Range/Units 11:57 13:10 WBC 8.8 (4.5-11.0) X10^3/uL RBC 4.57 (4.0-5.2) X10^6/uL Hgb 14.6 (12.0-16.0) g/dL Hct 42.2 (36-46) % MCV 92.5 (80-100) fL MCH 32.1 (26-34) PG MCHC 34.7 (30-36) % RDW 12.5 (11.6-14.8) % Plt Count 253 (150-400) X10^3/uL Neut % (Auto) 65.2 (50-75) % Lymph % (Auto) 25.3 (25-40) % [place] % (Auto) 8.4 (3-14) % Eos % (Auto) 0.1 L (2-4) % Baso % (Auto) 1.0 (0-2) % Neut # (Auto) 5700 (0418-4080) /uL Lymph # (Auto) 2200 (3241-6118) /uL [place] # (Auto) 700 (0-900) /uL Eos # (Auto) 0 (0-450) /uL Baso # (Auto) 100 (0-100) /uL D-Dimer 350 (<500) ng/ml Sodium 138 (137-145) mmol/L Potassium 3.9 (3.4-5.1) mmol/L Chloride 107 (98-107) mmol/L Carbon Dioxide 25 (22-32) mmol/L BUN 15 (7-17) mg/dL Creatinine 0.96 (0.52-1.04) mg/dL Estimated GFR > 60 (>60) mL/min BUN/Creatinine Ratio 15.6 (6-22) Glucose 93 (70-100) mg/dL Calcium 9.4 (8.4-10.2) mg/dL Total Bilirubin 0.6 (0.2-1.3) mg/dL AST 24 (14-36) IU/L ALT 26 (<35) IU/L Alkaline Phosphatase 43 (38-126) U/L Total Creatine Kinase 29 L (30-135) U/L Troponin I < 0.012 (0.01-0.034) ng/mL NT-Pro-B Natriuret Pep < 20 (<125) pg/mL Total Protein 7.2 (6.3-8.2) g/dL Albumin 3.9 (3.5-5.0) g/dL Globulin 3.3 (1.7-4.1) g/dL Albumin/Globulin Ratio 1.2 (1.0-2.8) Lipase 95 (23-300) U/L Chlamy pneumoniae PCR Not detected (Not Detect) Adenovirus (PCR) Not detected (Not Detect) B.parapertussis DNA PCR Not detected (Not Detecte) Coronavirus OC43 (PCR) Not detected (Not Detect) Coronavirus HKU1 (PCR) Not detected (Not Detect) Coronavirus 229E (PCR) Not detected (Not Detect) SARS-CoV-2 (PCR) Not detected (Not Detecte) Coronavirus NL63 (PCR) Not detected (Not Detect) Human Metapneumovir PCR Not detected (Not Detect) Influenza Type A (PCR) Not detected (Not Detect) Influenza Type B (PCR) Not detected (Not Detect) M. pneumoniae (PCR) Not detected (Not Detect) Parainfluenza 1 (PCR) Not detected (Not Detect) Parainfluenza 2 (PCR) Not detected (Not Detect) Parainfluenza 3 (PCR) Not detected (Not Detect) Parainfluenza 4 (PCR) Not detected (Not Detect) RSV (PCR) Not detected (Not Detect) Entero/Rhino (PCR) Not detected (Not Detect) Imaging Data Chest x-ray: Radiologist's Impression: PROCEDURE: XR CHEST 1V INDICATIONS: Eval for pneumonia TECHNIQUE: One view of the chest was acquired. COMPARISON: [facility], , XR CHEST 2V, 01/28/2022, 14:24. FINDINGS: Surgical changes and devices: None. Lungs and pleura: Lungs are clear. No pleural effusions or pneumothorax. Mediastinum: Mediastinal contours appear normal. Heart size is normal. Bones and chest wall: No suspicious bony lesions. Overlying soft tissues appear unremarkable. IMPRESSION: No acute cardiopulmonary abnormality is seen. ECG Data Attestation: I personally reviewed and interpreted this ECG as follows: Interpretation: Sinus rhythm Ventricular rate is 76 Normal axis Normal QRS Normal QTC No ST T wave changes MDM Narrative Medical decision making narrative: Patient is not hypoxic. Clear lungs. Afebrile. Nonproductive cough. No leukocytosis. Clinically does not have pneumonia. Her respiratory panel was negative. EKGs unremarkable. Troponins negative. D-dimer is negative. BNP is negative. No lower extremity swelling. Had an extensive discussion with her regarding the lack of a definitive diagnosis. I do feel that we should hold on further radiologic studies for now based on her workup up to this point. She does have albuterol at home. Plan will be to put her on steroids for the next couple days. She was instructed that if any of her symptoms worsen that she needs to return to the emergency department for further evaluation when I would recommend considering doing a CT scan of her chest. Patient expressed understanding and agreement with plan. Discharge Plan Departure Patient Disposition: Home Clinical Impression: Shortness of Breath Instructions: DI for Shortness of Breath Activity Restrictions/Additional Instructions: Recommend that you continue to take all of your medications as directed. The steroids as directed. Contact your primary doctor for follow-up. Return to the emergency department for new or worsening symptoms. Prescriptions: New prednisone 20 mg tablet 20 mg PO DAILY Qty: 7 0RF No Action amoxicillin 875 mg tablet 875 mg PO BID Qty: 14 0RF prenat.vits,dolly,qqs-ktio-arifm tablet 1 tab PO DAILY Qty: 90 3RF ibuprofen 600 mg tablet 600 mg PO Q6HR PRN (Reason: Fever/Mild Pain (1-3)) Qty: 30 0RF cetirizine [Zyrtec] 10 mg tablet 10 mg PO DAILY metoprolol succinate 50 mg tablet extended release 24 hr 25 mg PO DAILY wellbutrin PO citalopram 40 mg tablet 40 mg PO DAILY Vitamin D PO B complex PO Referrals: Sally Vides MD [Primary Care Provider] - Stand Alone Forms: Patient Portal/API
[2023-01-27 12:58] LABS: Adenovirus Not Detected (Not Detect); B. parapertussis Not Detected (Not Detecte); Bordetella pertussis Not Detected (Not Detect); Chlamydophila pneumoniae Not Detected (Not Detect); Coronavirus 229E Not Detected (Not Detect); Coronavirus HKU1 Not Detected (Not Detect); Coronavirus NL 63 Not Detected (Not Detect); Coronavirus OC43 Not Detected (Not Detect); Human Metapneumovirus Not Detected (Not Detect); Human Rhinovirus/Enterovirus Not Detected (Not Detect); Influenza A Not Detected (Not Detect); Influenza B Not Detected (Not Detect); Mycoplasma pneumoniae Not Detected (Not Detect); Parainfluenza Virus 1 Not Detected (Not Detect); Parainfluenza Virus 2 Not Detected (Not Detect); Parainfluenza Virus 3 Not Detected (Not Detect); Parainfluenza Virus 4 Not Detected (Not Detect); Respiratory Syncytial Virus Not Detected (Not Detect); SARS- CoV-2 Not Detected (Not Detecte)
[2023-01-27 13:29] LABS: Add Manual Diff / Slide Review NO; Basophils Absolute Auto 100 /uL (0-100); Eosinophils Absolute Auto 0 /uL (0-450); Eosinophils Percent Auto 0.1 % (2-4); Hematocrit 42.2 % (36-46); Hemoglobin 14.6 g/dL (12.0-16.0); Lymphocytes Absolute Auto 2200 /uL (1100-4500); Lymphocytes Percent Auto 25.3 % (25-40); Mean Corpuscular HGB Conc 34.7 % (30-36); Mean Corpuscular Hemoglobin 32.1 PG (26-34); Mean Corpuscular Volume 92.5 fL (80-100); Monocytes Absolute Auto 700 /uL (0-900); Monocytes Percent Auto 8.4 % (3-14); Neutrophils Absolute Auto 5700 /uL (1500-7000); Neutrophils Percent Auto 65.2 % (50-75); Platelet Count 253 X10^3/uL (150-400); Red Blood Cell Count 4.57 X10^6/uL (4.0-5.2); Red Cell Distribution Width 12.5 % (11.6-14.8); White Blood Cell Count 8.8 X10^3/uL (4.5-11.0)
[2023-01-27 13:32] LABS: D Dimer 350 ng/ml (<500)
[2023-01-27 13:35] LABS: Alanine Aminotransferase 26 IU/L (<35); Albumin 3.9 g/dL (3.5-5.0); Albumin Globulin Ratio 1.2 (1.0-2.8); Alkaline Phosphatase 43 U/L (38-126); Aspartate Aminotransferase 24 IU/L (14-36); BUN Creatinine Ratio 15.6 (6-22); Bilirubin Total 0.6 mg/dL (0.2-1.3); Blood Urea Nitrogen 15 mg/dL (7-17); Calcium 9.4 mg/dL (8.4-10.2); Carbon Dioxide 25 mmol/L (22-32); Chloride 107 mmol/L (98-107); Creatine Kinase 29 U/L (30-135); Estimated Glomerular Filt Rate > 60 mL/min (>60); Globulin 3.3 g/dL (1.7-4.1); Glucose 93 mg/dL (70-100); HEMOLYSIS < 15 (0-50); Lipase 95 U/L (23-300); Potassium 3.9 mmol/L (3.4-5.1); Sodium 138 mmol/L (137-145); Total Protein 7.2 g/dL (6.3-8.2)
[2023-01-27 13:46] LABS: NT-proBNP (BNP-Adult 18+) < 20 pg/mL (<125); Troponin I < 0.012 ng/mL (0.01-0.034)
== END 2023-01-27 14:18 | disposition home or self-care (01) ==
PROVIDERS: Emergency Provider Emergency Medicine; PCP Family Medicine
DX: R06.02 Shortness of breath (principal)
CPT/HCPCS: 36415; 71045; 80053; 82550; 83690; 83880; 84484; 85025; 85379; 87633; 93005; 99283; 99284